=== PATIENT | female | born 1970 | race Caucasian/White ===

== ENCOUNTER 2018-10-14 08:02 | Day surgery (SDC) | payer BC ==
[2018-10-14] MEDS ORDERED: ACETAMINOPHEN 1,000 MG/100 ML BTL IV ONE (08:03)
[2018-10-14] MEDS ORDERED: LABETALOL HCL 5MG/ML, 20ML VIAL IV ONE (08:03)
[2018-10-14] MEDS ORDERED: MIDAZOLAM HCL 2MG/2ML VIAL IV ONE (08:03)
[2018-10-14] MEDS ORDERED: LIDOCAINE 2% MDV (20MG/ML) 20ML VIAL IV ONE (08:03)
[2018-10-14] MEDS ORDERED: ACETAMINOPHEN W/ CODEINE 300MG/30MG TABLET PO ONE (08:03)
[2018-10-14] MEDS ORDERED: SEVOFLURANE 250 ML INH ONE (08:03)
[2018-10-14] MEDS ORDERED: BUPIVACAINE 0.25% W/EPI MPF 30ML VIAL IVP ONE (08:03)
[2018-10-14] MEDS ORDERED: KETAMINE HCL 100MG/1ML VIAL INJ ONE (08:03)
[2018-10-14] MEDS ORDERED: PROPOFOL 10 MG/ML VIAL IV ONE (08:03)
[2018-10-14 08:29] LABS: HCG,QUALITATIVE URINE NEGATIVE (NEGATIVE)
--- NOTE | 2018-10-15 08:20 | Operative Note ---
DATE OF SURGERY: 10/14/2018 Surgeon: Franklin Juarez DO PREOPERATIVE DIAGNOSIS: Torn medial meniscus of the left knee. POSTOPERATIVE DIAGNOSES: 1. Torn medial meniscus of the left knee. 2. Chondromalacia of the medial femoral condyle and patella, left knee. OPERATION: 1. Arthroscopic partial medial meniscectomy, left knee. 2. Arthroscopic chondroplasty medial femoral condyle and patella, left knee. DESCRIPTION OF PROCEDURE: This 48-year-old female was taken to the operating room and placed in the supine position on the operating room table where general anesthetic was administered. The left lower extremity was elevated, exsanguinated, and the tourniquet inflated to 300 mmHg. Arthroscopic knee burton applied. Left knee prepped with Hibiclens and draped in the usual sterile fashion. An inferolateral portal was established for the 4 mm arthroscope, and initial evaluation of the joint demonstrated grade 3 chondromalacia of the median ridge and medial facet of the patella with the lateral facet being less affected. The trochlea appeared essentially normal. An inferomedial portal was established, and chondroplasty was performed to stabilize the articular cartilage at the patella. The medial and lateral gutters were subsequently examined and found to be normal. The medial compartment was entered, and a large grade 3 lesion of the medial femoral condyle was present with a large flap of loose articular cartilage present in the center of the weightbearing surface of the medial femoral condyle. Chondroplasty was performed to stabilize the articular cartilage there. The patient also demonstrated a root tear of the medial meniscus, and utilizing the basket forceps, we smoothed, tapered, and contoured the meniscus with a stable configuration by tapering back to the apex of the tear. This was then re-probed and confirmed to be stable. The intracondylar notch was examined and found to be normal. The lateral compartment was entered. No meniscal pathology was identified. A very small area of early grade 2 chondromalacia was noted at the posteromedial corner of the lateral tibial plateau. This was not further disturbed. The joint was copiously irrigated and suctioned. The instruments were removed. The portals infiltrated with 0.25% Marcaine with epinephrine. Sterile dressings applied. Tourniquet and knee burton released, and the patient taken to the recovery room in satisfactory condition. GROSS PATHOLOGY: This patient demonstrated a root tear of the posterior horn of the medial meniscus. In addition, grade 3 chondromalacia of the medial femoral condyle and patella was present as described above. CC: DO AMOS Chapman
== END 2018-10-14 11:20 | disposition home or self-care (01) ==
LOC: SUR 08:02
PROVIDERS: ATTEND Orthopaedic Surgery
DX: S83.207A Unspecified tear of unspecified meniscus, current injury, left knee, initial encounter (principal); M22.42 Chondromalacia patellae, left knee; E03.9 Hypothyroidism, unspecified
CPT/HCPCS: 81025; J3490

== ENCOUNTER 2019-03-03 06:09 | Day surgery (SDC) | payer BC ==
[~2019-03-03 06:09] MED LIST: ACETAMINOPHEN 1,000 MG/100 ML BTL IVPB ONE
[2019-03-03] MEDS ORDERED: FENTANYL PF 100MCG/2ML VIAL IV ONE (06:10)
[2019-03-03] MEDS ORDERED: ONDANSETRON HCL IV 4 MG/2 ML VIAL IVP ONE (06:10)
[2019-03-03] MEDS ORDERED: SEVOFLURANE 250 ML INH ONE (06:10)
[2019-03-03] MEDS ORDERED: MIDAZOLAM HCL 2MG/2ML VIAL IV ONE (06:10)
[2019-03-03] MEDS ORDERED: KETOROLAC 30 MG/ML VIAL IVP ONE (06:10)
[2019-03-03] MEDS ORDERED: LIDOCAINE 2% MDV (20MG/ML) 20ML VIAL IV ONE (06:10)
[2019-03-03] MEDS ORDERED: PROPOFOL 10 MG/ML VIAL IV ONE (06:10)
[2019-03-03] MEDS ORDERED: RINGERS SOLUTION,LACTATED 1,000 ML IV ONE (07:00)
[2019-03-03] MEDS ORDERED: BUPIVACAINE 0.25% W/EPI MPF 30ML VIAL SQ ONE (08:45)
[2019-03-03] MEDS ORDERED: HYDROCODONE/APAP 5/325MG TABLET PO ONE (09:41)
--- NOTE | 2019-03-04 09:40 | Operative Note ---
DATE OF SURGERY: 03/03/2019 SURGEON: Franklin Juarez DO PREOPERATIVE DIAGNOSES: 1. Torn medial meniscus of the right knee. 2. Trigger finger, left thumb. POSTOPERATIVE DIAGNOSES: 1. Torn medial meniscus, right knee. 2. Chondromalacia of medial femoral condyle and patella right knee. 3. Loose joint body of right knee. 4. Trigger finger of the left thumb. OPERATION: 1. Arthroscopic partial medial meniscectomy, right knee. 2. Arthroscopic chondroplasty of the medial femoral condyle and patella, right knee. 3. Arthroscopic removal of loose joint bodies, right knee. 4. Tenotomy A1 natalie, left thumb. DESCRIPTION OF PROCEDURE: This 48-year-old female was taken to the operating room and placed in the supine position on the operating room table where general anesthesia was induced. The right lower extremity was elevated, exsanguinated, and the tourniquet inflated to 300 mmHg. Arthroscopic knee burton applied. Right knee prepped with Hibiclens and draped in the usual sterile fashion. An inferolateral portal was established for the 4 mm arthroscope, and initial evaluation of the joint demonstrated normal appearance of the suprapatellar pouch but there was evidence of grade 3 chondromalacia of the patella mostly in the median ridge but extending out into the medial facet to some degree. Loose fragment of articular cartilage was present there, and a chondroplasty was performed through an inferomedial portal. We then directed our attention to the medial compartment, and 2 loose joint bodies were present. These were articular cartilage which measured approximately 1 to 1.5 cm each. These were grasped and removed from the joint. In addition, grade 3 chondromalacia of the entire weightbearing surface of the medial femoral condyle was present with loose fragment of articular cartilage, and chondroplasty was performed there to stabilize the remaining articular cartilage. No normal articular cartilage was present on the medial femoral condyle. The patient also demonstrated a radial tear of the posterior horn of the medial meniscus, and we resected back to the apex of the tear and then tapered in each direction to form a smooth tapered surface, the apex of the tear being at about the 11-o'clock position. The remainder of the medial meniscus was seen to be normal. The intracondylar notch was examined and found to be normal. The lateral compartment was entered, and probing of the lateral meniscus and articular cartilage of the lateral compartment did not reveal any abnormalities. The joint was then copiously irrigated with lactated Ringer's solution. All areas were then reexamined and no additional findings were present. The joint was suctioned. The instruments were removed. The portals infiltrated with 0.25% Marcaine with epinephrine. Sterile dressings were applied. We then directed our attention to the left thumb and after re-prepping and re- draping and change of surgical gowns, we elevated the left upper extremity and exsanguinated and the tourniquet inflated to 250 mmHg. We then made an incision in the left thumb at the flexor crease at the metacarpophalangeal joint. Dissection was carried down through the skin and subcutaneous tissue. The radial digital nerve was easily identified and protected during the operative procedure. The flexor A1 natalie was noted. There was nodularity of the FPL which was catching in the natalie. The natalie was then completely opened and no catching or locking of the thumb was then identified. Other than the nodularity of the tendon, it was otherwise unremarkable. It was not frayed. Hemostasis was obtained with the electrocautery. The wound irrigated and closed with interrupted 6-0 nylon suture. Sterile dressings were applied and the patient taken to the recovery room in satisfactory condition. GROSS PATHOLOGY: This patient demonstrated nodularity of the FPL of the left thumb and in addition, there was grade 3 chondromalacia of the patella and medial femoral condyle of the right knee and loose articular cartilage fragments present in the medial compartment of the right knee which were removed in the manner described above. AMOS
== END 2019-03-03 10:08 | disposition home or self-care (01) ==
LOC: SUR 06:09
PROVIDERS: ATTEND Orthopaedic Surgery
DX: S83.241A Other tear of medial meniscus, current injury, right knee, initial encounter (principal); M65.312 Trigger thumb, left thumb; M22.41 Chondromalacia patellae, right knee; M23.41 Loose body in knee, right knee; E03.9 Hypothyroidism, unspecified
CPT/HCPCS: 29881; 26055; 01400; 81025; J1885; J2405; J3010; J7120